=== PATIENT | male | born 1990 | race African-American/Black ===

== ENCOUNTER 2020-04-25 21:31 | Emergency (ER) | payer SELFPAY ==
--- NOTE | 2020-04-25 21:50 | ED Physician Documentation ---
History of Present Illness - Stated complaint Stated Complaint: RT EYE LAC - Chief complaint Chief Complaint: Laceration - History obtained from History obtained from: Patient - Additonal information Additional information: Patient is a 29-year-old male who was running in the [place] when he accidentally was struck by a tree limb causing a laceration to his right eyebrow he denies any pain to the eyeball itself denies any loss of consciousness denies any history of eye surgery denies any contact lenses or corrective lens use. Review of Systems Constitutional: reports: Reviewed and negative Eyes: reports: Irritation Ears: reports: Reviewed and negative Nose: reports: Reviewed and negative Throat: reports: Reviewed and negative Cardiac: reports: Reviewed and negative Respiratory: reports: Reviewed and negative GI: reports: Reviewed and negative : reports: Reviewed and negative Skin: reports: Laceration (s) Musculoskeletal: reports: Reviewed and negative Neurologic: reports: Reviewed and negative Psychiatric: reports: Reviewed and negative Endocrine: reports: Reviewed and negative Immunocompromised: reports: Reviewed and negative PD PAST MEDICAL HISTORY - Past Medical History Past Medical History: No - Past Surgical History Past Surgical History: No - Allergies Allergies/Adverse Reactions: Allergies Allergy/AdvReac Type Severity Reaction Status Date / Time No Known Drug Allergies Allergy Verified 04/25/20 21:41 - Social History Does the pt smoke?: Yes Smoking Status: Current some day smoker Does the pt drink ETOH?: No Does the pt have substance abuse?: Yes Substance Use and Type: Marijuana - Immunizations Immunizations are current?: Yes - POLST Patient has POLST: No PD ED PE NORMAL - Vitals Vital signs reviewed: Yes - General General: Alert and oriented X 3, No acute distress - HEENT HEENT: PERRL, EOMI, Other (No hyphema, no hypopyon, Small corneal abrasion noted, 8 mm laceration to the right eyelid that is not through and through) - Neck Neck: Supple, no meningeal sign - Cardiac Cardiac: RRR, No murmur - Respiratory Respiratory: Clear bilaterally - Abdomen Abdomen: Normal bowel sounds, Soft, Non tender, Non distended - Derm Derm: Warm and dry - Extremities Extremities: No deformity - Neuro Neuro: Alert and oriented X 3 - Psych Psych: Normal mood, Normal affect Results - Vitals Vitals: Vital Signs - 24 hr 04/25/20 04/25/20 21:39 23:22 Temperature 36.7 C Heart Rate 103 H 99 Respiratory 16 18 Rate Blood Pressure 166/82 H 147/89 H O2 Saturation 97 98 Oxygen O2 Source Room air Procedures - Laceration (location) Eyelid right Length in cm: 0.8 Wound type: Curved Neurovascular status: Sensory intact, Motor intact, Vascular intact Wound Preparation: Irrigated copiously NS, Other (No foreign bodies identified) Skin layer closure: Dermabond Other: Patient tolerated well, No complications, Tetanus UTD Complexity: Simple PD MEDICAL DECISION MAKING - ED course Complexity details: considered differential (Eyelid laceration, corneal abrasion) Departure - Departure Disposition: Home, Self Care Clinical Impression: Eyelid laceration, right Qualifiers: Encounter type: initial encounter Qualified Code(s): S01.111A - Laceration without foreign body of right eyelid and periocular area, initial encounter Corneal abrasion Qualifiers: Encounter type: initial encounter Laterality: right Qualified Code(s): S05.01XA - Injury of conjunctiva and corneal abrasion without foreign body, right eye, initial encounter Condition: Stable Instructions: ED Eye Injury Corneal Abrasion, ED Laceration Facial Skin Glue Follow-Up: your, doctor [Other] Comments: Use Polytrim antibiotic drops 2-3 times daily for the next 2 days. If you have worsening eye pain please see an eye doctor either an manager machine or ophthalmol ogist.Your skin glue will dissolve slowly over the next 7 to 10 days. Discharge Date/Time: 04/25/20 23:22
[2020-04-25] MEDS ORDERED: PROPARACAINE 0.5% OPHTH DROPS 15 ML RIGHTEYE STA (22:34)
[2020-04-25] MEDS ORDERED: POLYMYXIN B/TRIMETH OPHTH DROPS RIGHTEYE STA (23:11)
[2020-04-25 23:22] VITALS: BP 147/89
== END 2020-04-25 23:22 | disposition home or self-care (01) ==
LOC: ED 21:31
DX: S01.111A Laceration without foreign body of right eyelid and periocular area, initial encounter (principal); S05.01XA Injury of conjunctiva and corneal abrasion without foreign body, right eye, initial encounter; W22.8XXA Striking against or struck by other objects, initial encounter; Y93.02 Activity, running; Y92.821 Forest as the place of occurrence of the external cause; F17.200 Nicotine dependence, unspecified, uncomplicated
CPT/HCPCS: 12011; 99282; 99283; A9270; J3490